=== PATIENT | female | born 1980 | race Caucasian/White ===

== ENCOUNTER → 2024-01-25 07:10 | Outpatient (REF) | payer BC, SELFPAY | LOC: HWRAD 07:10 | PROVIDERS: ATTENDING PHYSICIAN Surgery; FAMILY PHYSICIAN Internal Medicine | DX: K40.90 Unilateral inguinal hernia, without obstruction or gangrene, not specified as recurrent (principal) | CPT/HCPCS: 76882 ==

== ENCOUNTER 2024-11-22 05:56 | Day surgery (SDC) | payer OTHER, SELFPAY ==
[2024-11-22 06:19] VITALS: BMI 21.8
[2024-11-22 06:22] VITALS: BP 160/107
[2024-11-22] MEDS: NORMOSOL-R/PLASMALYTE-A 1000 IV (06:42)
[2024-11-22] MEDS: TYLENOL 1000 MG PO (06:42)
--- NOTE | 2024-11-22 06:51 | HP.FOC2 ---
Focused History & Physical
Chief Complaint
HPI:
Chief Complaint: Right inguinal swelling
HPI / Indication for Planned Procedure: Patient is a 44-year-old female previously seen in outpatient evaluation secondary to a longstanding history of right inguinal swelling. She had ultrasound imaging identifying lobulated cystic mass in the
right inguinal/groin area suggestive of a cystic mass. Examination findings highly suggestive of anal canal duct cyst or indirect inguinal hernia. She presents today for scheduled operative correction.
Relevant Past Medical History: Other (History of preeclampsia)
Relevant Social History: Negative
Relevant Family History: Negative
Relevant Past Surgical History: Positive for ( x 3, abdominoplasty)
Review of Systems
Review of Pertinent Systems: All Systems Negative
Medication
See Medication form for detailed medications: Yes
Medication List (including Herbals & OTC):
Multivitamin Gummies 2 gum PO DAILY 11/18/24
fluticasone propionate 50 mcg/actuation nasal spray,suspension 1 spray intranasal PRN PRN seasonal allergies 11/18/24
Medications Reviewed: Yes
Allergies and Reactions
Patient has Allergies: No
Noted Allergies and Reactions:
Allergy/AdvReac Type Severity Reaction Status Date / Time
No Known Allergies Allergy Verified 11/22/24 06:18
Pertinent Physical Exam
All Other Systems: Negative
Head/Neck: Normal
Lungs: Normal
Heart: Normal
Abdomen: Other (Right inguinal mobile, soft fluid-filled cystic-like mass. Slight tenderness.)
Extremities: Normal
Neurological: Normal
Diagnosis / Assessment
44-year-old female presenting for scheduled right inguinal exploration and anticipated removal of canal neck cyst versus communicating hydrocele repair with possible mesh.
Plan / Procedure
Open removal right inguinal cyst/possible inguinal herniorrhaphy with mesh
Anesthesia/Sedation to be done by Anesthesia Provider: Yes
--- NOTE | 2024-11-22 06:55 | W.SUR.PREOP ---
Pre-Operative Surgical Note
-
I have examined this patient prior to the performance of the scheduled procedure.
The patient's condition is unchanged from the time of the current History and
Physical and the patient is able to undergo the scheduled procedure.
[2024-11-22 09:12] VITALS: BP 106/52
--- NOTE | 2024-11-22 09:27 | W.IMMPOSTOP ---
Addendum entered and electronically signed by Raul Sandhu MD 11/22/24 09:43:
#[id number]
Original Note:
Surgical Immed Post Op Note
-
Primary Surgeon: Raul Sandhu MD
Assisting Surgeon: Jenny CABELLO
Pre-op Diagnosis: Right inguinal cystic mass/swelling
Post-op Diagnosis: Right femoral hernia
Procedure Performed: Open repair right femoral hernia with mesh
Anesthesia Type: Monitored anesthetic care with incisional field block 1% lidocaine/0.25% Marcaine with epi
Specimen / Cultures: None
Estimated Blood Loss: 8 mL
Complications: None immediate
Operative Findings: Chronically incarcerated right femoral hernia with fluid-filled peritoneal hernia sac. Scar tissue encountered from previous abdominoplasty. Femoral hernia reduced. Underlay preperitoneal mesh repair with Bard soft mesh 5 cm x
10 cm but trimmed to accommodate the preperitoneal space. Subsequent closure/reapproximation of conjoined tendon/transversalis fascia to shelving edge of inguinal ligament. Normal indirect and femoral space.
[2024-11-22 09:28] VITALS: BP 118/74
[2024-11-22 09:45] VITALS: BP 118/74
== END 2024-11-22 10:17 | disposition home or self-care (01) ==
LOC: SDS 05:56
PROVIDERS: ATTENDING PHYSICIAN Surgery
DX: K41.30 Unilateral femoral hernia, with obstruction, without gangrene, not specified as recurrent (principal); R19.09 Other intra-abdominal and pelvic swelling, mass and lump
CPT/HCPCS: 49553; C1894